=== PATIENT | female | born 1935 | race Caucasian/White ===

== ENCOUNTER 2019-06-12 05:40 | Day surgery (SDC) | payer OTHER | END 2019-06-12 10:00 | disposition home or self-care (01) | LOC: AMB-ENDOS 05:40 | DX: D12.0 Benign neoplasm of cecum (principal) ==

== ENCOUNTER 2019-11-16 17:11 | Inpatient (IN) | payer OTHER ==
[~2019-11-16] VITALS: Ht 160 cm; Wt 79.4 kg
[2019-12-30] MEDS ORDERED: ULTRACET PO (08:15)
[2019-12-30] MEDS ORDERED: PANTOPRAZOLE SO40 MG PO (08:15)
[2019-12-30] MEDS ORDERED: INTESTINEX680 M1 PO (08:15)
== END 2019-12-30 10:52 | disposition home or self-care (01) | DRG 331 ==
LOC: SURH 12-24 05:00 → O/R 12-24 05:00 → EDSEX 12-24 05:00 → SURG 12-24 07:00 → SURH 12-24 11:26 → SURG 12-24 12:15 → SURH 12-25 22:42
PROVIDERS: ADMIT Surgery
PROC: 07TB4ZZ Resection of Mesenteric Lymphatic, Percutaneous Endoscopic Approach (ICD-10-PCS; 2019-12-24)
PROC: 4A033R1 Measurement of Arterial Saturation, Peripheral, Percutaneous Approach (ICD-10-PCS; 2019-12-24)
PROC: 3E0F7GC Introduction of Other Therapeutic Substance into Respiratory Tract, Via Natural or Artificial Opening (ICD-10-PCS; 2019-12-24)
PROC: 4A12X4Z Monitoring of Cardiac Electrical Activity, External Approach (ICD-10-PCS; 2019-12-24)
PROC: 0DTF4ZZ Resection of Right Large Intestine, Percutaneous Endoscopic Approach (ICD-10-PCS; principal; 2019-12-24 07:00)
DX: C18.2 Malignant neoplasm of ascending colon (principal); D12.0 Benign neoplasm of cecum; R73.01 Impaired fasting glucose; D50.0 Iron deficiency anemia secondary to blood loss (chronic); I87.2 Venous insufficiency (chronic) (peripheral); N18.3 Chronic kidney disease, stage 3 (moderate); J44.9 Chronic obstructive pulmonary disease, unspecified; D64.89 Other specified anemias